=== PATIENT | female | born 1995 ===

== ENCOUNTER → 2022-12-26 10:11 | Outpatient (CLI) | payer OTHER, SELFPAY ==
--- NOTE | ~2022-12-26 | US_ITS ---
. EXAMINATION: US OB /maternal detail DATE: 12/26/2022 10:47 INDICATION: anatomic survey. TECHNIQUE: Real-time ultrasound of the pelvis was performed. COMPARISON: None. FINDINGS: There is a single living fetus in transverse lie. The placenta is posterior, 5.9 cm from the cervix. The cervical length is 4.2 cm on transabdominal images. heart rate is 157 beats per minute (bp m). The amniotic fluid volume is subjectively normal. The following biometric data were obtained: Biparietal diameter (BPD): 4.4 cm; head circumference (HC): 17.1 cm; abdominal circumference (AC): 14 .0 cm; femur length (FL): 2.9 cm. These measurements are concordant. Estimated weight is 279 g +/- 42 g, which correlates with the 40th percentile when 05/20/23 is used as estimated date of delivery. As single measurements, these parameters are each equal to the following estimated gestational ages: BPD: 19 weeks 2 days. HC: 19 weeks 5 days. AC: 19 weeks 3 days. FL: 18 weeks 6 days. estimated gestational age based solely on measurements from this exam is 19 weeks 2 days +/- 1 weeks 2 days. The cerebral ventricles, cerebellum, cisterna magna, nuchal fold, lips, and visualized portions of th e spine are normal. The heart is normal. The diaphragm, stomach, kidneys, and bladder are normal. The re are two umbilical arteries to yield a 3-vessel cord. The cord insertion is normal. IMPRESSION: 1. Single living fetus in transverse lie. 2. Estimated weight is 279 g +/- 42 g, which correlates with the 40th percentile when 05/20/23 is used as estimated date of delivery. 3. Normal anatomic survey. Reviewed, dictated and finalized at location L. IMPRESSION: 1. Single living fetus in transverse lie. 2. Estimated weight is 279 g +/- 42 g, which correlates with the 40th pe rcentile when 05/20/23 is used as estimated date of delivery. 3. Normal anatomic survey.
== END ==
PROVIDERS: PCP Obstetrics & Gynecology Gynecologic Oncology; Visit Provider Obstetrics & Gynecology Gynecologic Oncology
DX: Z36.9 Encounter for antenatal screening, unspecified (principal); Z3A.19 19 weeks gestation of pregnancy
CPT/HCPCS: 76805